=== PATIENT | male | born 1995 | race Hispanic/Latino ===

== ENCOUNTER 2021-04-14 18:48 | Emergency (ER) | payer SELFPAY ==
[2021-04-14] MEDS ORDERED: Boostrix 0.5 ML (Tdap) VIAL ONE (19:21)
[2021-04-14] MEDS ORDERED: Lidocaine 1% (PF) 30 ML VIAL ONE (19:21)
== END 2021-04-14 20:10 | disposition home or self-care (01) ==
LOC: NAV ERS 18:48
DX: S61.412A Laceration without foreign body of left hand, initial encounter (principal); W26.0XXA Contact with knife, initial encounter
CPT/HCPCS: 12001; 90471; 90715; J2001